=== PATIENT | male | born 1955 | race Caucasian/White ===

== ENCOUNTER 2020-10-11 07:57 | Outpatient (CLI) | payer OTHER, SELFPAY ==
--- NOTE | 2020-10-11 08:00 | CT_ITS ---
WS: [id number] CT scan of the abdomen and pelvis with Oral and IV contrast. Additional two-dimensional coronal and s agittal reconstruction was performed. 10/11/2020 Clinical Data: LEFT LOWER QUADRANT PAIN Comparison: CT chest abdomen, 03/23/2010. DLP: 1173.[address] scans at [facility] use at least one of these dose optimization techniques: automat ed exposure control; mA and/or kV adjustment per patient size (includes targeted exams where dose is matched to clinical indication); or iterative reconstruction. Findings: The lower lungs show no nodules, masses or effusions. There is a small hiatal hernia.11 The liver, gallbladder, spleen, adrenal glands and pancreas are normal. The kidneys show equal bilateral contrast excretion with no cyst or masses. No hydronephrosis or raudel l calculi are noted. The abdominal aorta is normal in size with minimal calcification in the wall. No appendicitis or diverticulitis is seen. Oral contrast is in the stomach, small bowel and colon and there is no bowel dilatation. No abscess, adenopathy, ascites, mass, obstruction or free air is seen . The bladder is unremarkable. No inguinal hernia is seen. The bones of the lower thorax, lumbar spine, pelvis, and hips are normal. CT/CT abdomen pelvis w con* [id number] Impression: Negative for acute intra-abdominal or pelvic abnormalities.
[2020-10-11] MEDS: iohexol 300 mg/mL 50 mL Btl PO (09:04)
[2020-10-11 09:24] LABS: Blood Urea Nitrogen 13 mg/dL (8-23); Glomerular Filtration Rate 97.3 mL/min (90-130)
[2020-10-11] MEDS: iohexol 300 mg/mL 100 mL Btl IV (09:33)
== END 2020-10-11 07:58 | disposition home or self-care (01) ==
LOC: RADWPI 08:04
PROVIDERS: PCP Family Medicine; Visit Provider Family Medicine
DX: R10.32 Left lower quadrant pain (principal)
CPT/HCPCS: 74177; 82565; 84520; Q9967

== ENCOUNTER → 2022-11-25 08:44 | Outpatient (BNVA) | payer MEDICARE, OTHER, SELFPAY | PROVIDERS: PCP Family Medicine; Visit Provider Otolaryngology | DX: H91.93 Unspecified hearing loss, bilateral (principal); H93.13 Tinnitus, bilateral | CPT/HCPCS: 99203 ==

== ENCOUNTER → 2023-02-03 09:37 | Outpatient (BNVA) | payer MEDICARE, OTHER, SELFPAY | PROVIDERS: PCP Family Medicine; Visit Provider Otolaryngology | DX: H90.3 Sensorineural hearing loss, bilateral (principal); H93.13 Tinnitus, bilateral | CPT/HCPCS: 99213; 99214 ==

== ENCOUNTER 2023-12-24 11:23 | Emergency (ER) | payer MEDICARE, OTHER, SELFPAY ==
--- NOTE | 2023-12-24 11:25 | ECG_ITS ---
[facility] Test Date: 2023-12-24 Pat Name: Steve Woodruff Department: Room: Gender: Male Desolderer: : 1955 Requested By: Sandoval Vitale Order Number: [id number] Stephy MD: Cabrera Donovan M.D. Measurements Intervals [place] Rate: 62 P: 34 MN: 173 QRS: 69 QRSD: 97 T: 51 QT: 417 QTc: 424 Interpretive Statements SINUS RHYTHM No previous ECG available for comparison Electronically Signed On 12-24-2023 13:54:40 CDT by Cabrera Donovan M.D. [email or web address]
--- NOTE | 2023-12-24 11:25 | XR_ITS ---
WS: [id number] Exam: XR chest 1V portable [id number] Date/Time of Exam: 12/24/2023 11:25 AM Reason For Exam: cp No priors. Findings: The lungs are clear and fully expanded. Costophrenic angles are sharp. No infiltrates. Bronchovascula r relief appears normal. Cardiac silhouette is unremarkable. Bony elements are intact. XR/XR chest 1V portable [id number] IMPRESSION: Unremarkable chest radiograph.
[2023-12-24 11:30] VITALS: BP 173/91; PULSE 73; RESP 18; TEMP 36.7; O2SAT 98; BMI 28.0
[2023-12-24 11:48] LABS: Basophils % 0.7 %; Eosinophils # 0.1 10^3/uL (0.0-0.8); Eosinophils % 2.4 %; Hematocrit 44.5 % (37-53); Lymphocytes % 24.6 %; Mean Corpuscular HGB Conc 33.5 g/dL (30-55); Mean Corpuscular Hemoglobin 29.4 pg (27-33); Mean Corpuscular Volume 87.9 fl (82-101); Mean Platelet Volume 9.9 fL (7.4-10.4); Monocytes # 0.3 10^3/uL (0.2-0.9); Neutrophils # 2.66 10^3/uL (1.8-7.7); Neutrophils % 64.1 %; Nucleated Red Blood Cells % 0 %; Platelet Count 192 10^3/cmm (157-399); Red Blood Count 5.06 10^6/uL (3.85-5.65); White Blood Count 4.15 10^3/uL (3.29-11.43)
[2023-12-24 11:59] LABS: INR 0.93 (0.8-1.2)
[2023-12-24 12:07] LABS: Troponin(5th) Baseline 9 ng/L (0-15)
[2023-12-24 12:11] LABS: Alanine Aminotransferase 25 U/L (0-41); Albumin Level 4.5 g/dL (3.5-5.2); Alkaline Phosphatase 81 U/L (40-130); Anion Gap 15.6 (5-19); Aspartate Amino Transferase 22 U/L (0-40); Blood Urea Nitrogen 8 mg/dL (8-23); Carbon Dioxide 23 mmol/L (22-29); Chloride 104 mmol/L (98-107); Creatinine Clr Calc Pharmacy 97.4515; Globulin 2.8 g/dL (1.3-4.6); Glomerular Filtration Rate 96.4 mL/min (90-130); Glucose 107 mg/dL (65-115); Lipase 30 U/L (13-60); Osmolality Calculated 285 mOsm/kg (285-295); Potassium 4.6 mmol/L (3.5-5.1); Sodium 138 mmol/L (136-145); Total Bilirubin 0.8 mg/dL (0.15-1.2); Total Protein 7.3 g/dL (6.6-8.7)
--- NOTE | 2023-12-24 13:25 | ECG_ITS ---
[facility] Test Date: 2023-12-24 Pat Name: Steve Woodruff Department: Room: Gender: Male [employer]arer [employer]: : 1955 Requested By: Sandoval Vitale Order Number: [id number] Stephy MD: Cabrera Donovan M.D. Measurements Intervals [place] Rate: 56 P: 18 [place]: 186 QRS: -12 QRSD: 93 T: 9 QT: 441 QTc: 426 Interpretive Statements SINUS BRADYCARDIA Compared to ECG 12/24/2023 11:24:45 Sinus rhythm no longer present Electronically Signed On 12-24-2023 16:44:58 CDT by Cabrera Donovan M.D. [id number]
[2023-12-24 14:00] LABS: Troponin 5 2HR 7.22 ng/L (0-15)
[2023-12-24 14:06] LABS: Troponin 5 2HR Delta -1.78 ABS# (0-10)
--- NOTE | 2023-12-24 14:32 | ED_ITS ---
HPI - Chest Pain 2 General: Chief Complaint: Chest Pain Stated Complaint: chest pain Time Seen by Provider: 12/24/23 14:31 Source: patient and family (daughter) Mode of arrival: ambulatory Limitations: no limitations History of Present Illness: Patient is a very nice 68-year-old male who presents to ED today along with his daughter for evaluation of an episode of chest pain that occurred around 10:30 AM this morning. Patient states he was seated in a chair when he began developing substernal chest heaviness. He feels like pain radiated up into his neck. He states he subsequently called his daughter who is an RN who came to his house. Daughter felt like patient did not clinically appear well. He did complain of some nausea. They decided to bring patient to the emergency department for evaluation. He has no known cardiac or pulmonary history. He states he never had any shortness of breath or difficulty breathing. Patient states on his way to the emergency department his pain seemed to slowly subside and on my initial examination he is currently rating it at a 1/10. MD complaint: chest pain Onset (ago): hour(s) Timing of current episode: now resolved Prior episodes: No Onset: during rest Pain location: substernal Pain radiation: neck Severity: moderate Quality: tightness and heaviness Relieving factors: rest Exacerbating factors: nothing Associated symptoms: Reports nausea (resolved); Deny abdominal pain, dyspnea, fever(s), palpitations, syncope or vomiting Treatment prior to arrival: none Risk Factors: Coronary artery disease risk factors: none Thoracic aortic dissection risk factors: none Review of Systems 2 Const: Denies: fever(s), chills, body aches, fatigue or malaise Eyes: Denies: change in vision or blurry vision Card: Reports: chest pain (now almost fully resolved-rating 1/10); Denies: palpitations, irregular heart rhythm, edema, swelling of feet/ankles, lightheadedness, syncope, pre-syncope, dyspnea on exertion, orthopnea, leg pain with exertion or acrocyanosis Resp: Denies: dyspnea, productive cough or pain on inspiration GI: Reports: nausea (resolved); Denies: abdominal pain, vomiting, heartburn or diarrhea : Denies: flank pain, difficulty urinating, dysuria, urinary frequency, urinary urgency or urinary hesitancy Musc: Denies: neck pain, back pain or joint pain Skin/Breast: Denies: rash Neuro: Denies: headache(s), numbness in extremities, weakness in extremities, sensory changes or dizziness PFSH ED 2 PFSH: Social History Smoking and tobacco/nicotine status: never used tobacco/nicotine Physical Exam 2 Const: COMMON NORMALS: no acute distress, average body habitus, patient oriented x3, no limitations, healthy appearing, alert and well nourished G ENERAL APPEARANCE: cooperative ORIENTATION/CONSCIOUSNESS: Yes awake, Yes oriented to person, Yes oriented to place and Yes oriented to time HENMT: COMMON NORMALS: normocephalic and atraumatic HEAD & SCALP: normal to inspection, normocephalic and atraumatic Neck/C-Spine: COMMON NORMALS: full ROM, no lymphadenopathy, supple and no meningeal signs Chest: COMMONS NORMALS: normal inspection of the chest and normal palpation of entire chest wall Resp: COMMON NORMALS: normal respiratory effort and clear to auscultation bilaterally AUSCULTATION: clear to auscultation bilaterally Cardio: COMMON NORMALS: regular rate and regular rhythm RATE: regular rate RHYTHM: regular rhythm GI: COMMON NORMALS: Normal to inspection, nondistended, normoactive bowel sounds present, Soft to palpation, non-tender, No hepatosplenomegaly present and no masses PALPATION: Yes Soft to palpation and Yes No hepatosplenomegaly present Back/Pelvis: COMMON NORMALS: thoracic and lumbar spine normal to inspection Extremity: COMMON NORMALS: normal to inspection, no clubbing, cyanosis or edema, no calf tenderness and no pedal edema GENERAL: Yes normal exam except as noted Neuro: SHANTA COMA SCALE: document GCS findings Shanta coma scale eye opening: Spontaneous [place] coma scale verbal response: Orientated [place] coma scale motor response: Obey commands Shanta coma scale total score: 15 COMMON NORMALS: patient oriented x3 SENSORIUM/ORIENTATION: Yes alert, Yes oriented to person, Yes oriented to place and Yes oriented to time MENINGEAL SIGNS: Y es no meningeal signs Skin: COMMON NORMALS: no rashes or lesions noted GENERAL SKIN EXAM: no rashes or lesions noted Course 2 Vital Signs: Vital signs: Vital Signs Temperature 98.1 F 12/24/23 11:30 Pulse Rate 73 12/24/23 11:30 Respiratory Rate 18 12/24/23 11:30 Blood Pressure 173/91 12/24/23 11:30 Pulse Oximetry 98 12/24/23 11:30 Oxygen Delivery Me thod Room Air 12/24/23 11:30 MDM - Chest Pain Medical Decision Making Patient is a nice 68-year-old male here for an episode of chest pain. It has almost fully resolved at time of my initial examination he is currently rating it at a 1/10. Unfortunately patient had a rather lengthy wait in the emergency department waiting room. He was fortunately able to get his blood work ran from there. His baseline troponin is 9 with a 2-hour troponin of 7.2. Both his initial and repeat EKGs are nonischemic. His CXR is unremarkable. Remainder of blood work is unremarkable. I think given these findings and his improving pain, he is stable for discharge with follow-up with his primary care provider. We discussed outpatient stress testing if they feel indicated. Return to ED precautions given. Of note patient's blood pressure was elevated here in the emergency department. He feels he is usually normotensive at home. Recommend he keep a blood pressure log over the next 2 weeks and follow-up with primary care. Him and daughter both agreeable to this. Return ED precautions given. Medical Records I reviewed the patient's medical records. Lab Data I reviewed the patient's lab results. 12/24/23 11:38 12/24/23 11:38 Radiology Impressions Chest X-Ray 12/24/23 11:25 IMPRESSION: Unremarkable chest radiograph. Laboratory Results WBC 4.15 10^3/uL (3.29-11.43) 12/24/23 11:38 RBC 5.06 10^6/uL (3.85-5.65) 12/24/23 11:38 Hgb 14.90 g/dL (11.27-16.99) 12/24/23 11:38 Hct 44.5 % (37-53) 12/24/23 11:38 MCV 87.9 fl (82-101) 12/24/23 11:38 MCH 29.4 pg (27-33) 12/24/23 11:38 MCHC 33.5 g/dL (30-55) 12/24/23 11:38 RDW 12.0 % (12.1-15.1) L 12/24/23 11:38 Plt Count 192 10^3/cmm (157-399) 12/24/23 11:38 MPV 9.9 fL (7.4-10.4) 12/24/23 11:38 Neut % (Auto) 64.1 % 12/24/23 11:38 Lymph % (Auto) 24.6 % 12/24/23 11:38 [place] % (Auto) 8.0 % 12/24/23 11:38 Eos % (Auto) 2.4 % 12/24/23 11:38 Baso % (Auto) 0.7 % 12/24/23 11:38 Neut # (Auto) 2.66 10^3/uL (1.8-7.7) 12/24/23 11:38 Lymph # (Auto) 1.0 10^3/uL (0.8-4.8) 12/24/23 11:38 [place] # (Auto) 0.3 10^3/uL (0.2-0.9) 12/24/23 11:38 Eos # (Auto) 0.1 10^3/uL (0.0-0.8) 12/24/23 11:38 Baso # (Auto) 0.0 10^3/uL (0.0-0.1) 12/24/23 11:38 Nucleated RBC % (auto) 0 % 12/24/23 11:38 Nucleated RBCs # 0.0 /100WBC 12/24/23 11:38 PT 12.80 SECONDS (12.1-14.9) 12/24/23 11:38 INR 0.93 (0.8-1.2) 12/24/23 11:38 Sodium 138 mmol/L (136-145) 12/24/23 11:38 Potassium 4.6 mmol/L (3.5-5.1) 12/24/23 11:38 Chloride 104 mmol/L (98-107) 12/24/23 11:38 Carbon Dioxide 23 mmol/L (22-29) 12/24/23 11:38 Anion Gap 15.6 (5-19) 12/24/23 11:38 BUN 8 mg/dL (8-23) 12/24/23 11:38 Creatinine 0.8 mg/dL (0.7-1.2) 12/24/23 11:38 GFR Calculation 96.4 mL/min (90-130) 12/24/23 11:38 Glucose 107 mg/dL (65-115) 12/24/23 11:38 Calculated Osmolality 285 mOsm/kg (285-295) 12/24/23 11:38 Calcium 9.0 mg/dL (8.5-10.5) 12/24/23 11:38 Total Bilirubin 0.8 mg/dL (0.15-1.2) 12/24/23 11:38 AST 22 U/L (0-40) 12/24/23 11:38 ALT 25 U/L (0-41) 12/24/23 11:38 Alkaline Phosphatase 81 U/L (40-130) 12/24/23 11:38 Troponin T Baseline 9 ng/L (0-15) 12/24/23 11:38 Troponin T 120 Minute 7.22 ng/L (0-15) 12/24/23 13:30 Delta Troponin T -1.78 ABS# (0-10) L 12/24/23 13:30 Total Protein 7.3 g/dL (6.6-8.7) 12/24/23 11:38 Albumin 4.5 g/dL (3.5-5.2) 12/24/23 11:38 Globulin 2.8 g/dL (1.3-4.6) 12/24/23 11:38 Lipase 30 U/L (13-60) 12/24/23 11:38 All radiology interpretation(s) finalized by discharge Discharge Plan Discharge Patient Disposition: Home Clinical Impression: Chest pain Qualifiers: Chest pain type: unspecified Qualified Code(s): R07.9 - Chest pain, unspecified Condition: Stable Prescriptions: No Action atorvastatin 20 mg tablet 20 mg PO DAILY Qty: 90 3RF lorazepam 1 mg tablet 1 mg PO TID PRN (Reason: anxiety) Qty: 90 5RF duloxetine 20 mg capsule,delayed release(DR/EC) 40 mg PO DAILY Qty: 60 5RF Discharge Orders: Discharge ED (Routine); Ordered 12/24/23 Ordered By: Katelyn Copeland Referrals: Noble Larsen, [Primary Care Provider] - Patient Instructions: Chest Pain (DC) Activity Restrictions/Additional Instructions: As we discussed your emergency department workup here is reassuring. Your baseline and repeat troponins are normal. Your EKGs are nonischemic. Your chest x-ray is unremarkable. Remainder of blood work is unremarkable. At this time I would like you to follow-up with your primary care provider as outpatient stress test could be indicated if you continue to have episodes of chest pain. As we discussed your blood pressure was elevated here in the emergency department. You have reported that your blood pressure is usually normal at home. I would like you to start keeping a blood pressure log over the next 2 weeks and if this continually runs higher than 130/90 you need to follow-up with your primary care provider. You need to return to the emergency department for further episodes of chest pain, shortness of breath, difficulty breathing, or any other concerns you may have. It was a pleasure to care for you in the emergency department today and I hope you begin to feel better soon. Coding Level of Care Code ED Internal Controls Analyst for V[facility] Burrell
[2023-12-24 15:00] VITALS: BP 174/92; PULSE 57; RESP 19; O2SAT 98
[2023-12-24 15:36] VITALS: BP 170/99; PULSE 60; RESP 21; O2SAT 97
[2023-12-24 16:36] VITALS: BP 169/90; PULSE 57; RESP 16; O2SAT 98
== END 2023-12-24 17:09 | disposition home or self-care (01) ==
PROVIDERS: Emergency Medicine; Emergency Provider Physician Assistant; PCP Family Medicine
DX: R07.9 Chest pain, unspecified (principal)
CPT/HCPCS: 36415; 71045; 80053; 83690; 84484; 85025; 85610; 93005; 99285

== ENCOUNTER → 2024-02-17 08:07 | Outpatient (BNVA) | payer MEDICARE, OTHER, SELFPAY | PROVIDERS: PCP Family Medicine; Visit Provider Family Medicine | DX: Z13.6 Encounter for screening for cardiovascular disorders (principal); Z00.00 Encounter for general adult medical examination without abnormal findings; E03.9 Hypothyroidism, unspecified; F41.9 Anxiety disorder, unspecified; F32.A Depression, unspecified; R07.9 Chest pain, unspecified | CPT/HCPCS: 80053; 80061; 86140 ==

== ENCOUNTER 2024-03-08 10:23 | Outpatient (CLI) | payer MEDICARE, OTHER, SELFPAY ==
--- NOTE | 2024-03-08 10:30 | CT_ITS ---
WS: [id number] CT CALCIUM SCORE REASON FOR VISIT: R07.9 - Chest pain, unspecified; Coronary artery disease risk assessment COMPARISON: None TECHNIQUE: Noncontrast coronary CT in combination with quantitative analysis performed on a separate workstation were used to determine CACS (Agatston score) TOTAL EXAM DOSE: 43.27 mGy.cm ECG GATING: Prospective SCAN RANGE: Pulmonary artery bifurcation to Inferior aspect of heart COMPLICATIONS: None FINDINGS: Technical Quality/Examination Quality: Good Limitation: None OVERALL SCORES Total calcium score: 1238 Total volume score: 331.24 mm3 Percentile: 75-90% ARTERY SCORES Left main coronary artery: 62 Left anterior descending artery: 385 Left circumflex artery: 71 Right coronary artery: 720 OTHER FINDINGS: Mediastinum: Normal. Thoracic aorta: Normal. Lungs: Partially visualized lungs well aerated. Upper Abdomen: Normal. MINIMAL: 1-10 MILD: 11-100 MODERATE: 101-400 SEVERE:>400 CT/CT heart w calcium score 62390 IMPRESSION: 1. Severe coronary artery disease. Recommend cardiology consultation. 2. Total calcium score of 1238 is between the 75th and 90th percentile for mal es between the ages of 65 and 69 GRADING OF CORONARY ARTERY DISEASE (BASED ON TOTAL CALCIUM SCORE) NO EVIDENCE OF CAD: 0 calcium score
== END 2024-03-08 10:24 | disposition home or self-care (01) ==
LOC: RAD 10:24
PROVIDERS: PCP Family Medicine; Visit Provider Family Medicine
DX: I25.10 Atherosclerotic heart disease of native coronary artery without angina pectoris (principal); R07.9 Chest pain, unspecified
CPT/HCPCS: 75571; 80053; 80061; 86140

== ENCOUNTER 2024-04-27 06:00 | Outpatient (RCR) | payer MEDICARE, OTHER, SELFPAY | END 2024-05-27 23:59 | disposition home or self-care (01) | LOC: SPT 06:00 | PROVIDERS: Visit Provider Family Medicine | DX: I63.9 Cerebral infarction, unspecified (principal); R42 Dizziness and giddiness | CPT/HCPCS: 95992; 97161 ==

== ENCOUNTER → 2024-05-10 10:51 | Outpatient (BNVA) | payer MEDICARE, OTHER, SELFPAY | PROVIDERS: PCP Family Medicine; Visit Provider Family Medicine | DX: R93.1 Abnormal findings on diagnostic imaging of heart and coronary circulation (principal); I63.9 Cerebral infarction, unspecified; R53.83 Other fatigue; E03.9 Hypothyroidism, unspecified; R79.89 Other specified abnormal findings of blood chemistry; F41.9 Anxiety disorder, unspecified; F32.A Depression, unspecified | CPT/HCPCS: 80053; 82040; 82607; 84270; 84403; 84443; 85025 ==

== ENCOUNTER → 2024-11-23 10:53 | Outpatient (BNVA) | payer MEDICARE, OTHER, SELFPAY | PROVIDERS: PCP Family Medicine; Visit Provider Family Medicine | DX: I25.10 Atherosclerotic heart disease of native coronary artery without angina pectoris (principal); E78.00 Pure hypercholesterolemia, unspecified; I63.9 Cerebral infarction, unspecified | CPT/HCPCS: 80053; 80061; 85025 ==

== ENCOUNTER 2025-01-31 13:21 | Outpatient (RCR) | payer MEDICARE, OTHER, SELFPAY | END 2025-02-24 23:59 | disposition home or self-care (01) | LOC: CR 13:21 | PROVIDERS: PCP Family Medicine; Visit Provider Family Medicine | DX: Z95.1 Presence of aortocoronary bypass graft (principal) | CPT/HCPCS: 93798 ==

== ENCOUNTER 2025-02-25 12:11 | Outpatient (RCR) | payer MEDICARE, OTHER, SELFPAY | END 2025-03-27 23:59 | disposition home or self-care (01) | LOC: CR 12:11 | PROVIDERS: PCP Family Medicine; Visit Provider Family Medicine | DX: Z95.1 Presence of aortocoronary bypass graft (principal) | CPT/HCPCS: 93798 ==

== ENCOUNTER 2025-03-29 08:19 | Outpatient (RCR) | payer MEDICARE, OTHER, SELFPAY | END 2025-04-26 23:59 | disposition home or self-care (01) | LOC: CR 08:19 | PROVIDERS: PCP Family Medicine; Visit Provider Family Medicine | DX: Z95.5 Presence of coronary angioplasty implant and graft (principal) | CPT/HCPCS: 93798 ==

== ENCOUNTER 2025-04-27 12:04 | Outpatient (RCR) | payer MEDICARE, OTHER, SELFPAY | END 2025-05-27 23:59 | disposition home or self-care (01) | LOC: CR 12:04 | PROVIDERS: PCP Family Medicine; Visit Provider Family Medicine | DX: Z95.5 Presence of coronary angioplasty implant and graft (principal) | CPT/HCPCS: 93798 ==

== ENCOUNTER → 2025-05-19 09:38 | Outpatient (BNVA) | payer MEDICARE, OTHER, SELFPAY | PROVIDERS: PCP Family Medicine; Visit Provider Family Medicine | DX: I25.10 Atherosclerotic heart disease of native coronary artery without angina pectoris (principal); E78.00 Pure hypercholesterolemia, unspecified; F32.A Depression, unspecified; F41.9 Anxiety disorder, unspecified | CPT/HCPCS: 80053; 80061; 85025 ==

== ENCOUNTER 2025-06-27 08:34 | Outpatient (RCR) | payer MEDICARE, OTHER, SELFPAY | END 2025-07-27 23:59 | disposition home or self-care (01) | LOC: CR 08:34 | PROVIDERS: PCP Family Medicine; Visit Provider Family Medicine | DX: Z95.1 Presence of aortocoronary bypass graft (principal) | CPT/HCPCS: 93798 ==